=== PATIENT | female | born 1995 | race Two or more races ===

== ENCOUNTER 2020-04-06 11:59 | Outpatient (CLI) | payer OTHER | END 2020-04-06 12:15 | disposition home or self-care (01) | LOC: RX STUDY 11:59 | PROVIDERS: ATTEND Obstetrics & Gynecology | DX: N94.89 Other specified conditions associated with female genital organs and menstrual cycle (principal) ==

== ENCOUNTER 2021-05-02 14:00 | Inpatient (IN) | payer OTHER ==
[~2021-05-02] VITALS: Ht 167.6 cm; Wt 70.3 kg
[2021-05-14] MEDS ORDERED: PRENATAL TABLE1 EAC1 PO (06:11)
== END 2021-05-25 12:35 | disposition home or self-care (01) | DRG 807 ==
LOC: OB/GYN 05-20 14:00 → LDR 05-23 04:22 → SURG-SUITE 05-23 04:22
PROVIDERS: ADMIT Obstetrics & Gynecology; ATTEND Obstetrics & Gynecology
PROC: 10E0XZZ Delivery of Products of Conception, External Approach (ICD-10-PCS; principal; 2021-05-23)
PROC: 0KQM0ZZ Repair Perineum Muscle, Open Approach (ICD-10-PCS; 2021-05-23)
PROC: 4A1HXFZ Monitoring of Products of Conception, Cardiac Rhythm, External Approach (ICD-10-PCS; 2021-05-23)
DX: O70.1 Second degree perineal laceration during delivery (principal); Z37.0 Single live birth; Z3A.40 40 weeks gestation of pregnancy; Z20.822 Contact with and (suspected) exposure to COVID-19

== ENCOUNTER 2021-05-14 05:32 | Outpatient (CLI) | payer OTHER ==
[2021-05-14] MEDS ORDERED: PRENATAL TABLE1 EAC1 PO (06:11)
== END 2021-05-16 14:07 | disposition home or self-care (01) ==
LOC: OBS/DEL 05:32
PROVIDERS: ATTEND Obstetrics & Gynecology
DX: O26.893 Other specified pregnancy related conditions, third trimester (principal); R10.2 Pelvic and perineal pain; Z3A.39 39 weeks gestation of pregnancy

== ENCOUNTER 2023-01-09 13:12 | Outpatient (CLI) | payer OTHER ==
[~2023-01-09 13:12] MED LIST: PRENATAL TABLE1 EAC1 PO
== END 2023-01-09 13:52 | disposition home or self-care (01) ==
LOC: PRENATAL 13:12
PROVIDERS: ATTEND Obstetrics & Gynecology Maternal & Fetal Medicine
DX: Z76.1 Encounter for health supervision and care of foundling (principal)

== ENCOUNTER 2023-02-04 11:05 | Outpatient (CLI) | payer OTHER | END 2023-02-04 13:15 | disposition home or self-care (01) | LOC: PRENATAL 11:05 | PROVIDERS: ATTEND Obstetrics & Gynecology Maternal & Fetal Medicine | DX: O35.3XX0 Maternal care for (suspected) damage to fetus from viral disease in mother, not applicable or unspecified (principal); O35.9XX0 Maternal care for (suspected) fetal abnormality and damage, unspecified, not applicable or unspecified; Z3A.20 20 weeks gestation of pregnancy ==

== ENCOUNTER 2023-05-15 12:06 | Emergency (ER) | payer OTHER ==
[~2023-05-15] VITALS: Ht 167.6 cm; Wt 63.5 kg
[2023-05-15] MEDS ORDERED: TUSSIN100 MG/51 PO (15:36)
[2023-05-15] MEDS ORDERED: OSEL75CA PO (15:36)
[2023-05-15] MEDS ORDERED: ZYRTEC10 M3 PO (15:36)
== END 2023-05-15 15:51 | disposition home or self-care (01) ==
LOC: ER 12:06
DX: J10.1 Influenza due to other identified influenza virus with other respiratory manifestations (principal); R53.81 Other malaise; Z20.822 Contact with and (suspected) exposure to COVID-19; Z3A.34 34 weeks gestation of pregnancy

== ENCOUNTER 2023-06-12 10:20 | Inpatient (IN) | payer OTHER ==
[~2023-06-12] VITALS: Ht 167.6 cm; Wt 67.6 kg
[~2023-06-12 10:20] MED LIST changes: +OSEL75CA PO; +TUSSIN100 MG/51 PO; +ZYRTEC10 M3 PO
[2023-06-12] MEDS ORDERED: PRENATAL 19 TA1 EAC2 PO (14:15)
== END 2023-06-14 13:15 | disposition home or self-care (01) | DRG 807 ==
LOC: LDR 10:20 → OB/GYN 10:20 → LDR 06-23 15:03
PROVIDERS: ADMIT Obstetrics & Gynecology; ATTEND Obstetrics & Gynecology
PROC: 10E0XZZ Delivery of Products of Conception, External Approach (ICD-10-PCS; principal; 2023-06-12)
PROC: 0KQM0ZZ Repair Perineum Muscle, Open Approach (ICD-10-PCS; 2023-06-12)
PROC: 4A1HXCZ Monitoring of Products of Conception, Cardiac Rate, External Approach (ICD-10-PCS; 2023-06-12)
DX: O70.1 Second degree perineal laceration during delivery (principal); Z37.0 Single live birth; Z3A.38 38 weeks gestation of pregnancy; Z20.822 Contact with and (suspected) exposure to COVID-19